=== PATIENT | female | born 1950 | race Native Hawaiian/Other Pacific Islander ===

== ENCOUNTER 2022-11-29 12:59 | Emergency (ER) | payer OTHER ==
[~2022-11-29] VITALS: Ht 162.6 cm; Wt 73.5 kg
[2022-11-29 13:49] VITALS: BP 126/83; TEMP 98.3
== END 2022-11-29 15:00 | disposition home or self-care (01) ==
LOC: ED 12:59
DX: J32.8 Other chronic sinusitis (principal)
CPT/HCPCS: 96372; 99282; J1100